=== PATIENT | male | born 1955 | race Caucasian/White ===

== ENCOUNTER → 2019-12-08 | Outpatient (CLI) | payer MEDICAID ==
--- NOTE | 2019-12-08 08:39 | US ---
EXAMINATION TYPE: US abdomen complete DATE OF EXAM: 12/08/2019 COMPARISON: NONE CLINICAL HISTORY: R10.31 RLQ abd pain, LUQ Abd pain R10.32. Patient stated has bilateral pelvic pain; prior CABG EXAM MEASUREMENTS: Liver Length: 15.7 cm Gallbladder Wall: 0.2 cm CBD: 0.5 cm Spleen: 9.6 cm Right Kidney: 10.9 x 5.7 x 4.6 cm Left Kidney: 10.6 x 6.1 x 5.9 cm Pancreas: wnl Liver: wnl Gallbladder: wnl Evidence for sonographic Correa's sign: wnl CBD: wnl Spleen: wnl Right Kidney: No hydronephrosis or masses seen Left Kidney: No hydronephrosis or masses seen Upper IVC: wnl Abd Aorta: ectatic appearance to upper and mid aorta with mild intimal wall thickening noted, but si ze is wnl. Bilateral pelvis US area of pain: no masses seen. The liver is homogenous. The intrahepatic portion of the IVC is wnl. There is no evidence of choleli thiasis. Common bile duct is unremarkable. The visualized portions of the pancreas are homogenous. The spleen is unremarkable. Kidneys are symmetric and free of hydronephrosis. No renal lesions are seen. IMPRESSION: 1. Imaging in the left lower quadrant and right lower quadrant demonstrates bowel gas only sonographi júnior. 2. Ectatic appearance of the upper and mid thoracic aorta with atherosclerosis. No aneurysm seen.
== END ==
LOC: RADUSWWP 07:40
PROVIDERS: ATTEND Family Medicine
DX: I70.0 Atherosclerosis of aorta (principal); R14.3 Flatulence
CPT/HCPCS: 76700

== ENCOUNTER → 2020-01-07 | Outpatient (CLI) | payer MEDICAID ==
--- NOTE | 2020-01-07 15:30 | XR ---
EXAMINATION TYPE: XR lumbosacral spine min 4V DATE OF EXAM: 01/07/2020 CLINICAL HISTORY: Low back pain TECHNIQUE: Frontal, lateral, and oblique images of the lumbar spine are obtained. COMPARISON: None FINDINGS: There are 5 lumbar type vertebral bodies identified. The lumbar spine shows satisfactory vertebral body heights. There is minimal retrolisthesis of L5 on S1 and L3 on L4 as well as L2 on L3 and L1 on L2. Intervertebral disc space narrowing is seen at L3-L4, L4-5 and L5-S1. Small anterior os sified are seen throughout the lumbar spine. Multilevel facet arthropathy is seen. Oblique images dem onstrate neural foraminal narrowing on the right at L2-L3, L3-L4, and L5-S1. On the left neural clarice inal narrowing is seen at L4-L5 and L5-S1. Moderate atherosclerosis of the abdominal aorta. The obliq ue images appear within normal limits. Corticated angulated coccygeal fracture is seen from prior inj ury. The overlying soft tissue appears unremarkable. Linear metallic densities overlie the T12-L1 jem tebral bodies, possibly expanded inferior vena cava filter. IMPRESSION: 1. No acute fracture is seen in the lumbar spine. 2. Moderate degenerative disc disease of the lumbar spine with multilevel malalignment likely on a de generative basis. 3. Old healed angulated coccygeal fracture. 4. Linear densities overlying the thoracolumbar junction, possible expanded inferior vena cava filter . Correlate with surgical history.
== END | disposition home or self-care (01) ==
LOC: RADXRMAIN 14:41
PROVIDERS: ATTEND Family Medicine
DX: M51.36 Other intervertebral disc degeneration, lumbar region (principal)
CPT/HCPCS: 72110

== ENCOUNTER → 2020-09-08 | Outpatient (CLI) | payer MEDICAID ==
--- NOTE | 2020-09-08 15:07 | US ---
EXAMINATION TYPE: US venous doppler duplex LE BI DATE OF EXAM: 09/08/2020 2:02 PM COMPARISON: NONE CLINICAL HISTORY: 65-year-old male M79.661,M79.662 PAIN IN LT AND RT LOWER LIMB. SIDE PERFORMED: Bilateral TECHNIQUE: The lower extremity deep venous system is examined utilizing real time linear array sonog olegario with graded compression, doppler sonography and color-flow sonography.. FINDINGS: VESSELS IMAGED: Common Femoral Vein Deep Femoral Vein Greater Saphenous Vein * Femoral Vein Popliteal Vein Small Saphenous Vein * Proximal Calf Veins (* superficial vessels) Right Leg: Negative for DVT Left Leg: Negative for DVT IMPRESSION: No evidence for DVT within the bilateral lower extremities imaged from the groin to the upper calves.
--- NOTE | 2020-09-13 11:46 | P.ARTDOP ---
Arterial Doppler LOWER EXTREMITY ARTERIAL DOPPLER: DATE OF SERVICE: 09/08/2020 Reason for study: Calf pain. Doppler waveforms: Multiphasic bilaterally throughout except the left great toe which has a poor waveform.. Pulse volume recording: []. Pressure gradients: Only at the left great toe. Ankle-brachial indices: Greater than 1 bilaterally. Toe brachial indices: 0.67 on the right, poor waveform on the left Impression: Normal study except the left great toe. Suspect the left great toe poor waveform is related to severe vasospastic phenomenon. Localized distal disease less likely. Clinical correlation recommended.
== END | disposition home or self-care (01) ==
LOC: RADUSWWP 13:27
PROVIDERS: ATTEND Family Medicine
DX: M79.661 Pain in right lower leg (principal); M79.662 Pain in left lower leg; R20.2 Paresthesia of skin
CPT/HCPCS: 93922; 93970

== ENCOUNTER → 2020-10-03 | Outpatient (CLI) | payer MEDICAID ==
--- NOTE | 2020-10-03 09:13 | CT ---
EXAMINATION TYPE: CT abdomen wo/w con DATE OF EXAM: 10/03/2020 COMPARISON: Ultrasound abdomen complete December 08, 2019 HISTORY: LLQ, Diverticulosis CT DLP: 942 mGycm, Automated Exposure Control for Dose Reduction was Utilized. CONTRAST: CT scan of the abdomen is performed with oral and without and with IV Contrast, patient injected with 100 ml mL of Isovue 300. FINDINGS: LUNG BASES: No significant abnormality is appreciated. LIVER/GB: No significant abnormality is appreciated. PANCREAS: Slight bulkiness of the pancreas without surrounding inflammatory change or ductal dilatati on. Suspect normal variant. SPLEEN: No significant abnormality is seen. ADRENALS: No significant abnormality is seen. KIDNEYS: No renal stones on noncontrast CT. Postcontrast images show symmetric cortical medullary up take and excretion without concerning renal mass or hydronephrosis seen bilaterally. BOWEL: Oral contrast does not reach ileal loops in the right abdomen making evaluation of bowel sligh tly suboptimal. No suspicious small or large bowel dilatation. LYMPH NODES: No greater than 1cm abdominal lymph nodes are appreciated. OSSEOUS STRUCTURES: Slight scoliotic curvature on coronal images. Straightening of spine on sagittal images with multilevel spondylolisthesis throughout the lumbar spine and moderate disc space narrowin g L3-L4 through L5-S1 levels. OTHER: Mild to moderate calcified plaque of the aorta extends into branch vessels. IMPRESSION: No significant acute finding is seen to account for patient's clinical symptoms.
== END | disposition home or self-care (01) ==
LOC: RADCTMAIN 07:23
PROVIDERS: ATTEND Family Medicine
DX: K57.90 Diverticulosis of intestine, part unspecified, without perforation or abscess without bleeding (principal)
CPT/HCPCS: 74170; Q9967

== ENCOUNTER → 2020-10-16 | Outpatient (CLI) | payer MEDICAID | END | disposition home or self-care (01) | LOC: LABPAT 16:10 | PROVIDERS: ATTEND Surgery | DX: Z20.828 Contact with and (suspected) exposure to other viral communicable diseases (principal) | CPT/HCPCS: U0003; C9803 ==

== ENCOUNTER 2020-10-23 10:12 | Day surgery (SDC) | payer MEDICAID ==
[2020-10-17 13:14] VITALS: BMI 23.0
[~2020-10-23 10:12] MED LIST: DEXAMETHASONE SOD PHOSPHATE 4 MG/ML 1 ML VIAL IV ONE; HYDROmorphone 0.5 MG/0.5 ML SYRINGE IVP PRN; LACTATED RINGERS 1,000 ML IV SCH; MIDAZOLAM 2 MG/2 ML VIAL IV PRN; ONDANSETRON 4 MG/2 ML VIAL IVP ONE; Pre Op ABX Message 1 EACH MISC MISCELLANE ONE; SCOPOLAMINE 1.5MG/72HR PATCH TRANSDERM ONE
[2020-10-23 10:37] VITALS: RESP 16
[2020-10-23] MEDS ORDERED: LIDOCAINE 1% (10MG/ML) FOR IV START INTRADERMA ONE (10:50)
[2020-10-23] MEDS ORDERED: MIDAZOLAM 2 MG/2 ML VIAL ONE (11:41)
[2020-10-23] MEDS ORDERED: fentaNYL (PF) 50 MCG/ML 2 ML AMP ONE (11:41)
[2020-10-23] MEDS ORDERED: LIDOCAINE 1% INJ 10MG/ML (20 ML MDV) ONE (11:41)
[2020-10-23] MEDS ORDERED: PROPOFOL 10 MG/ML 20 ML VIAL IV ONE (11:41)
[2020-10-23] MEDS ORDERED: BUPIVACAINE (PF) 0.25% 30 ML VIAL SQ ONE ×2 (12:01)
[2020-10-23] MEDS ORDERED: LIDOCAINE 1%/EPI 1:200,000 MPF 10 ML VIAL SQ ONE ×2 (12:01)
[2020-10-23] MEDS ORDERED: LACTATED RINGERS 1,000 ML IV ONE (12:08)
--- NOTE | 2020-10-23 12:47 | P.OP ---
Date of Procedure: 10/23/20 Preoperative Diagnosis: Hemorrhoids, rectal bleeding Postoperative Diagnosis: Internal and external hemorrhoids with rectal bleeding Procedure(s) Performed: Rectal exam under anesthesia, stapled hemorrhoidopexy, hemorrhoidectomy Anesthesia: RUDDY Surgeon: Leah Lobo Estimated Blood Loss (ml): 5 Pathology: other Condition: stable Disposition: PACU Indications for Procedure: The patient presented with symptomatic hemorrhoids and bleeding Operative Findings: The patient's taken to the operative suite where he is prepped and draped in the usual sterile manner under general anesthetic. Digital rectal exam is carried out. Anoscope is inserted and all areas are examined. He is noted to have internal and external hemorrhoids along with rectal mucosal prolapse. An obturator was anal dilator is then placed into the anus. It suggested so the dentate line is in the mid clear portion. A pursestring suture of 2-0 Prolene is then placed about 4-5 cm proximal to the dentate line. The stapler is inserted so the anvil was proximal to the pursestring and the pursestring suture is tied down. The stapler is then closed until we indicators in the mid green portion. It's held for 1 minute, fired and held for an additional minute. It's then derotated and removed. There is a good amount of rectal mucosa and submucosa removed. This gives good reduction of the mucosal prolapse. He has a larger hemorrhoid with skin tag in the right posterior lateral position. This is removed with harmonic scissors. Defect is then reapproximated using simple inverted deep dermal sutures of 3-0 Vicryl. The defect is then closed with 3-0 chromic. There is reexamined. There is small internal hemorrhoids noted anteriorly that appear unremarkable. Perianal block is carried out. He's taken to recovery room in satisfactory condition. According to or personnel, all counts were correct. Plan - Discharge Summary Discharge Rx Participant: No New Discharge Prescriptions: New HYDROcodone/APAP 7.5-325MG [[place] 7.5-325] 1 tab PO Q4H PRN 14 Days #30 tab PRN Reason: Pain Dibucaine [Nupercainal] 56.7 gm RECTAL Q6HR #1 oint...g. Docusate [Colace] 100 mg PO DAILY #30 capsule No Action Metoprolol Succinate [Toprol XL] 25 mg PO DAILY Rosuvastatin [Crestor] 20 mg PO HS Multivit-Min/Folic/Vit K/Lycop [Men's Multivitamin Tablet] 1 each PO DAILY Aspirin [Adult Low Dose Aspirin EC] 81 mg PO DAILY Discharge Medication List Aspirin [Adult Low Dose Aspirin EC] 81 mg PO DAILY 10/17/20 [History] Metoprolol Succinate [Toprol XL] 25 mg PO DAILY 10/17/20 [History] Multivit-Min/Folic/Vit K/Lycop [Men's Multivitamin Tablet] 1 each PO DAILY 10/17/20 [History] Rosuvastatin [Crestor] 20 mg PO HS 10/17/20 [History] Dibucaine [Nupercainal] 56.7 gm RECTAL Q6HR #1 oint...g. 10/23/20 [Rx] Docusate [Colace] 100 mg PO DAILY #30 capsule 10/23/20 [Rx] HYDROcodone/APAP 7.5-325MG [[place] 7.5-325] 1 tab PO Q4H PRN 14 Days #30 tab 10/23/20 [Rx] Follow up Appointment(s)/Referral(s): Leah Lobo DO [Doctor of Osteopathic Medicine] - 2 Weeks Activity/Diet/Wound Care/Special Instructions: High fiber diet, add fiber tablets or fiber gummies 2-3 times a day. Sit in a tub of warm water to 3 times a day, especially after bowel movement. Use wet wipes after bowel movement. Pat dry. Use the numbing ointment 3-4 times a day, especially after bowel movement. Expect some bleeding. Call if questions or concerns Discharge Disposition: HOME SELF-CARE
[2020-10-23 12:51] VITALS: TEMP 97.1
[2020-10-23] MEDS: HYDROmorphone 1 MG/ML 1 ML SYRINGE IVP ONE ×2 (13:13→13:18)
[2020-10-23] MEDS ORDERED: HYDROcodone/APAP 7.5-325MG 1 EACH TAB PO ONE ×2 (13:45→13:48)
[2020-10-23] MEDS ORDERED: HYDROcodone/APAP 7.5-325MG 1 EACH TAB ONE (13:48)
[2020-10-23 14:04] VITALS: BP 159/87; PULSE 56
--- NOTE | 2020-10-25 15:20 | CDI ---
Outpatient Documentation Clarification Form Date: 10/25/20 CDS/Plant General Manager Name: Arlin Rodríguez Phone: If any questions, call Jeimy Hoang Data Warehousing Manager at [phone] Patient Name: Froylan Umanzor Admit Date: 10/23/20 Discharge Date: 10/23/20 ATTENTION: The [facility] Coding Staff appreciate your assistance in clarifying documentation. Please respond to the clarification below the line at the bottom and electronically sign. The [facility] Coding staff will review the response and follow-up if needed. Please note: Queries are made part of the Legal Health Record. If you have any questions, please contact the Data Warehousing Manager. Dear Dr. Lobo, Please provide clarification as to which type of hemorrhoids the procedure(s) were performed on. On the operative report under Post-operative Diagnosis it is documented both internal and external hemorrhoids with rectal bleeding. In the body of the report only procedures describe locations of internal hemorrhoids. Please clarify. Thank you for your kind consideration. Internal with prolapse and external MTDD
== END 2020-10-23 14:26 | disposition home or self-care (01) ==
LOC: OR 10:12
PROVIDERS: ATTEND Surgery
DX: K64.8 Other hemorrhoids (principal); K64.4 Residual hemorrhoidal skin tags; K62.5 Hemorrhage of anus and rectum; Z86.79 Personal history of other diseases of the circulatory system; Z95.1 Presence of aortocoronary bypass graft; I10 Essential (primary) hypertension; E78.5 Hyperlipidemia, unspecified; Z87.891 Personal history of nicotine dependence; Z79.82 Long term (current) use of aspirin; Z79.899 Other long term (current) drug therapy; Z98.890 Other specified postprocedural states; Z88.0 Allergy status to penicillin
CPT/HCPCS: 46260; 88304; J2250; J1100; J2405; J2001; J3010; J1170; J2704

== ENCOUNTER 2021-04-05 06:13 | Emergency (ER) | payer MEDICAID ==
[2021-04-05] MEDS ORDERED: ASPIRIN 81 MG PO STA (06:21)
[2021-04-05] MEDS ORDERED: ONDANSETRON 4 MG/2 ML VIAL IVP STA (06:39)
[2021-04-05] MEDS ORDERED: MORPHINE SULFATE 4 MG/ML SYRINGE IVP STA (06:39)
[2021-04-05 06:41] LABS: Basophils % (A) 1 %; Eosinophils # (A) 0.2 k/uL (0-0.7); Eosinophils % (A) 4 %; HCT 42.9 % (39.0-53.0); HGB 14.7 gm/dL (13.0-17.5); Lymphocytes # (A) 1.7 k/uL (1.0-4.8); Lymphocytes % (A) 27 %; MCH 32.7 pg (25.0-35.0); MCHC 34.4 g/dL (31.0-37.0); MCV 95.1 fL (80.0-100.0); Mean Platelet Volume 7.6; Monocytes # (A) 0.4 k/uL (0-1.0); Monocytes % (A) 7 %; Neutrophils # (A) 3.8 k/uL (1.3-7.7); Neutrophils % (A) 61 %; Platelet Count 201 k/uL (150-450); RBC 4.51 m/uL (4.30-5.90); RDW 12.5 % (11.5-15.5); WBC 6.3 k/uL (3.8-10.6)
[2021-04-05 06:56] LABS: Albumin 4.5 g/dL (3.5-5.0); Calcium 9.2 mg/dL (8.4-10.2); INR 0.9 (<1.2); Partial Thromboplastin Time 24.5 sec (22.0-30.0); Potassium 4.4 mmol/L (3.5-5.1); Prothrombin Time 10.1 sec (9.0-12.0); Total Bilirubin 1.2 mg/dL (0.2-1.3); Total Protein 6.7 g/dL (6.3-8.2)
--- NOTE | 2021-04-05 07:01 | ED ---
Chest Pain HPI - General Chief Complaint: Chest Pain Stated Complaint: Chest Pain Time Seen by Provider: 04/05/21 06:20 Source: patient, RN notes reviewed Mode of arrival: ambulatory Limitations: no limitations - History of Present Illness Initial Comments: 65-year-old male presents emergency Department with multiple complaints. Patient states she's been having ongoing over one year worth of low back, abdominal discomfort. Patient states her rates down his legs states that there is always after working long hours. He stands all day. Patient states he saw his primary when this all started over a year ago states that he had x-rays CT and 2 ultrasounds which were negative and he states he just stopped following up. He denies any bowel bladder incontinence or retention. No saddle anesthesias. Patient states last couple days she's having similar pain in his shoulders. Patient is no chest pain or shortness breath no headache or dizziness. Patient states that he just feels very achy - Related Data Home Medications Medication Instructions Recorded Confirmed Aspirin [Adult Low Dose Aspirin EC] 81 mg PO DAILY 10/17/20 10/17/20 Metoprolol Succinate [Toprol XL] 25 mg PO DAILY 10/17/20 10/17/20 Multivit-Min/Folic/Vit K/Lycop 1 each PO DAILY 10/17/20 10/17/20 [Men's Multivitamin Tablet] Rosuvastatin [Crestor] 20 mg PO HS 10/17/20 10/17/20 Previous Rx's Medication Instructions Recorded Dibucaine [Nupercainal] 56.7 gm RECTAL Q6HR #1 oint...g. 10/23/20 Docusate [Colace] 100 mg PO DAILY #30 capsule 10/23/20 HYDROcodone/APAP 7.5-325MG [[place] 1 tab PO Q4H PRN 14 Days #30 tab 10/23/20 7.5-325] Cyclobenzaprine [Flexeril] 10 mg PO TID PRN #15 tab 04/05/21 predniSONE 50 mg PO DAILY #5 tab 04/05/21 Allergies Allergy/AdvReac Type Severity Reaction Status Date / Time Penicillins Allergy Rash/Hives Verified 04/05/21 06:19 Review of Systems ROS Statement: Those systems with pertinent positive or pertinent negative responses have been documented in the HPI. ROS Other: All systems not noted in ROS Statement are negative. Past Medical History Past Medical History: Hyperlipidemia, Hypertension History of Any Multi-Drug Resistant Organisms: None Reported Past Surgical History: Coronary Bypass/CABG Additional Past Surgical History / Comment(s): COLONOSCOPY Past Anesthesia/Blood Transfusion Reactions: Previous Problems w/ Anesthesia Additional Past Anesthesia/Blood Transfusion Reaction / Comment(s): WAS SLOW TO COME OUT OF ANESTHESIA AFTER CABG Past Psychological History: No Psychological Hx Reported Smoking Status: Former smoker Past Alcohol Use History: Occasional Past Drug Use History: None Reported - Past Family History Mother Family Medical History: No Reported History General Exam Limitations: no limitations General appearance: alert, in no apparent distress Head exam: Present: atraumatic, normocephalic, normal inspection Eye exam: Present: normal appearance, PERRL, EOMI. Absent: scleral icterus, conjunctival injection, periorbital swelling ENT exam: Present: normal exam, normal oropharynx, mucous membranes moist Neck exam: Present: normal inspection, full ROM. Absent: tenderness, meningismus, lymphadenopathy Respiratory exam: Present: normal lung sounds bilaterally. Absent: respiratory distress, wheezes, rales, rhonchi, stridor Cardiovascular Exam: Present: regular rate, normal rhythm, normal heart sounds. Absent: systolic murmur, diastolic murmur, rubs, gallop, clicks GI/Abdominal exam: Present: soft, normal bowel sounds. Absent: distended, tenderness, guarding, rebound, rigid Extremities exam: Present: normal inspection, full ROM, normal capillary refill. Absent: tenderness, pedal edema, joint swelling, calf tenderness Back exam: Present: full ROM, tenderness (Over the SI joints), paraspinal tenderness, vertebral tenderness Neurological exam: Present: alert, oriented X3 Skin exam: Present: warm, dry, intact, normal color. Absent: rash Course Vital Signs 04/05/21 04/05/21 04/05/21 06:16 06:51 07:24 Temperature 97.9 F 98.0 F Pulse Rate 63 85 53 L Respiratory 20 16 20 Rate Blood Pressure 140/90 140/82 137/83 O2 Sat by Pulse 99 97 97 Oximetry Chest Pain MDM - MDM Workup Is negative at this Time and exercises degenerative changes. Patient has no complaints chest pain or shortness of breath. Patient has joint pain which he's developed after work. Patient does have history of bulging disc in which he is to have injections in his lumbar spine. Patient will follow-up with orthopedics will follow-up with primary care physician for probable MRI patient and agree to plan return parameters discussed. Disposition Clinical Impression: Lumbar degenerative disc disease, Lumbar radiculopathy, Arthralgia, Myalgia Disposition: HOME SELF-CARE Condition: Stable Instructions (If sedation given, give patient instructions): Lumbar Radiculopathy (ED), Musculoskeletal Pain (ED) Additional Instructions: Please return to the Emergency Department if symptoms worsen or any other concerns. Prescriptions: Cyclobenzaprine [Flexeril] 10 mg PO TID PRN #15 tab PRN Reason: Muscle Spasm predniSONE 50 mg PO DAILY #5 tab Is patient prescribed a controlled substance at d/c from ED?: No Referrals: Johanny Watson MD [Primary Care Provider] - 1-2 days Lars Myers DO [Doctor of Osteopathic Medicine] - 1-2 days Time of Disposition: 08:03
[2021-04-05 07:25] VITALS: TEMP 98
--- NOTE | 2021-04-05 07:29 | XR ---
EXAM: XR Chest, 2 Views CLINICAL HISTORY: ITS.REASON XR Reason: Chest Pain TECHNIQUE: Frontal and lateral views of the chest. COMPARISON: No relevant prior studies available. FINDINGS: Lungs: Unremarkable. No consolidation. The pulmonary vasculature demonstrates no significant radiographic abnormality. Pleural space: Unremarkable. No pneumothorax. No large pleural effusion. Heart: Unremarkable. No cardiomegaly. Mediastinum: Unremarkable. No significant abnormality identified. The trachea is midline. Orphaned pacer leads suggested in the anterior mediastinum on the lateral projection. Bones/joints: Intact sternotomy wires. Mild dextroscoliosis, estimated at 15 between the superior endplate at L4 and T10. IMPRESSION: No acute cardiopulmonary process identified. Incidental mild scoliosis. Intact sternotomy wires with orphaned pacer leads.
--- NOTE | 2021-04-05 07:32 | XR ---
EXAMINATION TYPE: XR lumbosacral spine min 4V DATE OF EXAM: 04/05/2021 COMPARISON: 01/07/2020 HISTORY: Pain TECHNIQUE: 5 view lumbar spine FINDINGS: There are 5 lumbar-type vertebral bodies. Pedicles are intact. Facet degenerative changes a re present L4-5 L5-S1 on the left. Spondylosis is present. Degenerative disc changes are present L3-4 through L5-S1. Vertebral body heights are preserved. Note is made of vascular calcification within t he aorta. COMPARISON: No significant interval change is evident. IMPRESSION: 1. Degenerative changes lower lumbar spine disc and facets discussed above 2. No acute osseous abnormality.
[2021-04-05] MEDS ORDERED: methylPREDNISolone SOD SUCCI 125 MG/2 ML VIAL IV STA (08:00)
[2021-04-05] MEDS ORDERED: CYCLOBENZAPRINE 10 MG TAB PO STA (08:00)
[2021-04-05] MEDS ORDERED: ACET/COD 300 MG/30 MG STARTER PACK 6 TAB BTL PO STA (08:03)
[2021-04-05 08:29] VITALS: BP 131/91; PULSE 52; RESP 18
== END 2021-04-05 08:28 | disposition home or self-care (01) ==
LOC: SUPCPDRO 06:13 → EC 06:13
DX: M51.16 Intervertebral disc disorders with radiculopathy, lumbar region (principal); M25.519 Pain in unspecified shoulder; M79.10 Myalgia, unspecified site; I10 Essential (primary) hypertension; E78.5 Hyperlipidemia, unspecified; Z87.891 Personal history of nicotine dependence; Z79.52 Long term (current) use of systemic steroids; Z79.82 Long term (current) use of aspirin; Z88.0 Allergy status to penicillin; Z95.1 Presence of aortocoronary bypass graft
CPT/HCPCS: 36415; 93005; 80053; 83690; 83735; 84484; 85025; 85610; 85730; 72110; 71046; 99285; 96374; 96375 ×2; J2270; J2930; J2405

== ENCOUNTER → 2021-11-30 | Outpatient (CLI) | payer MEDICAID ==
--- NOTE | 2021-11-30 15:59 | MR ---
EXAMINATION TYPE: MR lumbar spine wo con DATE OF EXAM: 11/30/2021 COMPARISON: Outside lumbar November 15, 2021 spine x-ray HISTORY: Low back pain that radiates down both legs for several years TECHNIQUE: Multiplanar, multisequence imaging of the lumbar spine is performed without IV contrast. FINDINGS: There is dextroconvex scoliosis centered lower lumbar spine redemonstrated. Sagittal images of the lumbar spine show vertebral body heights to remain satisfactory. Alignment is straightened on sagittal images. There is grade 1 retrolisthesis L5 on S1 redemonstrated. Multilevel disc desiccatio n with moderate disc space narrowing L3-L4 level. Moderate to advanced disc space narrowing with mode rate anterior spurring and heterogeneous Modic type I and type II endplate changes at L4-L5 and L5-S1 levels. The conus medullaris is normal in position and signal ending inferior L1 level. Additional m oderate multilevel anterior spurring redemonstrated. Axial images at T12-L1 level show mild broad-based disc bulge mildly effacing anterior thecal sac and mild facet degenerative changes bilaterally mildly effacing the posterolateral thecal sac. Axial images at the L1-L2 level show [id number] facet degenerative changes effacing the the rig ht posterior lateral thecal sac. There is mild/moderate broad disc bulge with right paracentral disc protrusion component effacing the anterior thecal sac. Patent bilateral neural foramina. Axial images at the L2-L3 level show mild broad disc bulge mildly effaces the anterior thecal sac and mild facet degenerative changes bilaterally. Patent bilateral neural foramina. Axial images at the L3-L4 level shows subtle spondylolisthesis with moderate broad-based posterior di sc protrusion effacing the anterior thecal sac. There is mild facet arthropathy effacing the right po sterior lateral thecal sac. There is mild right-sided anterior inferior neural foraminal narrowing. Axial images at the L4-L5 level show moderate broad disc bulge effacing anterior thecal sac. There is moderate facet arthropathy and ligament flavum hypertrophy effacing the posterior lateral thecal sac . There is moderate left-sided inferior neural foraminal narrowing. Axial images at the L5-S1 level show spondylolisthesis with moderate broad-based posterior disc protr usion. There is mild to moderate facet arthropathy bilaterally. There is moderate bilateral neural fo raminal narrowing. The paraspinal muscle bulk is preserved. IMPRESSION: Straightening of lumbar spine with multilevel degenerative changes as detailed above
== END | disposition home or self-care (01) ==
LOC: RADMRIMAIN 15:01
PROVIDERS: ATTEND Orthopaedic Surgery
DX: M51.36 Other intervertebral disc degeneration, lumbar region (principal)
CPT/HCPCS: 72148

== ENCOUNTER → 2021-12-29 | Outpatient (CLI) | payer MEDICAID ==
--- NOTE | 2021-12-29 11:00 | MR ---
EXAMINATION TYPE: MR thoracic spine wo con DATE OF EXAM: 12/29/2021 10:50 AM COMPARISON: NONE HISTORY: Mid back pain. Multiplanar MultiSpin echo imaging of the thoracic spine was performed. Disc spaces: There is degenerative disc space narrowing and posterior disc bulging at T6-7 and T9-T10 through T12-L1. No disc herniation or central stenosis appreciated. Spinal canal: No evidence for canal stenosis. No intrinsic or extrinsic lesion. Thoracic spinal cord: Thoracic spinal cord is of normal caliber and signal. Paraspinal soft tissues: No evidence for paraspinal mass. No destructive lesions seen. Vertebral segments: No evidence for fracture or bony lesion. IMPRESSION: Left degenerative disc space narrowing and posterior disc bulging with ventral spondylosi s as outlined above.
== END | disposition home or self-care (01) ==
LOC: RADMRIMAIN 10:05
PROVIDERS: ATTEND Orthopaedic Surgery
DX: M43.04 Spondylolysis, thoracic region (principal)
CPT/HCPCS: 72146

== ENCOUNTER 2022-01-17 11:00 | Day surgery (SDC) | payer MEDICAID ==
[2022-01-15 11:21] VITALS: BMI 24.9
[~2022-01-17 11:00] MED LIST changes: -DEXAMETHASONE SOD PHOSPHATE 4 MG/ML 1 ML VIAL IV ONE; -HYDROmorphone 0.5 MG/0.5 ML SYRINGE IVP PRN; +LIDOCAINE 1% (10MG/ML) FOR IV START INTRADERMA PRN; -MIDAZOLAM 2 MG/2 ML VIAL IV PRN; -ONDANSETRON 4 MG/2 ML VIAL IVP ONE; -Pre Op ABX Message 1 EACH MISC MISCELLANE ONE; -SCOPOLAMINE 1.5MG/72HR PATCH TRANSDERM ONE
[2022-01-17 11:42] VITALS: TEMP 97.7
[2022-01-17] MEDS ORDERED: LIDOCAINE 1% (10MG/ML) FOR IV START INTRADERMA ONE (11:47)
[2022-01-17] MEDS ORDERED: fentaNYL (PF) 50 MCG/ML 2 ML AMP ONE (11:55)
[2022-01-17] MEDS ORDERED: IOPAMIDOL M200 10 ML VIAL ONE (11:55)
[2022-01-17] MEDS ORDERED: MIDAZOLAM 2 MG/2 ML VIAL ONE (11:55)
[2022-01-17] MEDS ORDERED: methylPREDNISolone ACETATE 40 MG/ML 1 ML VIAL ONE (11:55)
--- NOTE | 2022-01-17 12:07 | P.PCN ---
Date of Procedure: 01/17/22 Procedure(s) Performed: PREOPERATIVE DIAGNOSIS: 1- Lumbar Degenerative Disc Diseases 2-Lumbar spondylosis with Facet arthropathy without myelopathy. 3-lumbar foraminal stenosis POSTOPERATIVE DIAGNOSIS: Same as preop diagnosis. PROCEDURE 1. Lumbar epidural steroid injection under fluoroscopic guidance at the L5-S1 level. (Fluoroscopy imaging was available in radiology department) 2. Lumbar epidurogram. ANESTHESIA: Local with 1% lidocaine 3 ml and , moderate sedation with intravenous Versed 2 mg ,and fentanyle 100 Mcg EBL: Minimal PROCEDURE INDICATION: The patient with low back pain and radiculitis symptoms unresponsive to conservative treatment. Fluoroscopy was used to optimize visualization of the needle placement and to maximize safety. PROCEDURE DESCRIPTION / TECHNIQUE: The patient was seen and identified in the preoperative area. Risks, benefits, complications including but not limited to infections ,bleeding ,allergic reaction to the medications ,nerve damage and not complete pain releife , and alternatives were discussed with the patient. The patient agreed to proceed with the procedure and signed the consent. IV was started, and vital signs were stable. Patient was taken to the OR and time out was completed. The patient was placed in the prone position on procedure table and a pillow was placed under the abdomen to reduce lumbar lordosis. The lumbosacral area was prepped and draped in the usual sterile fashion.ere closely monitored during the procedure. Conscious sedation was used during the procedure to decrease patients anxiety. Vital signs was monitered during the entire procedure. Using anterior-posterior fluoroscopy, the L5-S1 interlaminar space was identified and the skin over this site was marked and then infiltrated with 1% lidocaine subcutaneously. Subsequently, a 20-gauge Tuohy epidural needle was inserted and advanced toward the epidural space using the ``Loss of resistance technique and guided by AP and lateral fluoroscopy. The correct needle position in the epidural space was verified with the injection of 2 mL of the water soluble contrast dye Isovue 200 contrast and observing an excellent epidurogram with the epidural spread of the dye, after negative aspiration for blood and CSF and in the absence of paresthesias. Again after negative aspiration, a 6 ml mixture containing 80 mg of Depo-medrol , and 2 ml of preservative free Normal Saline, and 2 ml of preservative free lidocaine 1% solution was injected and a washout of epidurogram was seen. Needle was withdrawn intact, skin was cleansed, and bandages were applied. COMPLICATIONS: None DISPOSITION / PLANS: The patient was placed in a supine position and transferred to the recovery area in a stable condition for observation. There was no evidence of lower extremity motor or sensory deficit after the procedure. Patient was discharged from the recovery room after meeting discharge criteria. Home discharge instructions were given to the patient by the staff. The patient was reexamined prior to discharge. The patient will schedule a follow up in the clinic in 2-4 weeks.
[2022-01-17] MEDS ORDERED: IV FLUID CONTINUATION 1,000 ML IV ONE (12:12)
[2022-01-17 12:15] VITALS: RESP 16
[2022-01-17 12:33] VITALS: BP 132/83; PULSE 60
--- NOTE | 2022-01-17 12:45 | FL ---
Fluoroscopy INDICATION: Pain FINDINGS: Fluoroscopy time: 2 seconds. Images obtained: 1. IMPRESSIONS: 1. Documentation of fluoroscopy.
== END 2022-01-17 12:49 | disposition home or self-care (01) ==
LOC: ORPAIN 11:00
PROVIDERS: ATTEND Specialist
DX: M51.16 Intervertebral disc disorders with radiculopathy, lumbar region (principal); M48.061 Spinal stenosis, lumbar region without neurogenic claudication
CPT/HCPCS: 62323; J2250; J1030; J3010; Q9966

== ENCOUNTER 2022-02-28 11:35 | Day surgery (SDC) | payer MEDICAID ==
[2022-02-27 10:37] VITALS: BMI 24.7
[2022-02-28] MEDS ORDERED: LACTATED RINGERS 1,000 ML IV ONE (11:57)
[2022-02-28 12:01] VITALS: TEMP 97.2
[2022-02-28] MEDS ORDERED: IOPAMIDOL M200 10 ML VIAL ONE (12:25)
[2022-02-28] MEDS ORDERED: TRIAMCINOLONE ACETONIDE 40 MG/ML 1 ML VIAL ONE (12:25)
[2022-02-28] MEDS ORDERED: MIDAZOLAM 2 MG/2 ML VIAL ONE (12:25)
[2022-02-28] MEDS ORDERED: fentaNYL (PF) 50 MCG/ML 2 ML AMP ONE (12:25)
--- NOTE | 2022-02-28 12:41 | P.PCN ---
Date of Procedure: 02/28/22 Description of Procedure: PREOPERATIVE DIAGNOSIS: 1- Lumbar Degenerative Disc Diseases 2-Lumbar spondylosis with Facet arthropathy without myelopathy. 3-lumbar foraminal stenosis POSTOPERATIVE DIAGNOSIS: Same as preop diagnosis. PROCEDURE 1. Lumbar epidural steroid injection under fluoroscopic guidance at the L5-S1 level. (Fluoroscopy imaging was available in radiology department) 2. Lumbar epidurogram. ANESTHESIA: Local with 1% lidocaine 3 ml and , moderate sedation with intravenous Versed 2 mg ,and fentanyl 100 Mcg EBL: Minimal PROCEDURE INDICATION: The patient with low back pain and radiculitis symptoms unresponsive to conservative treatment. Received excellent relief with first LESI >60% Fluoroscopy was used to optimize visualization of the needle placement and to maximize safety. PROCEDURE DESCRIPTION / TECHNIQUE: The patient was seen and identified in the preoperative area. Risks, benefits, complications including but not limited to infections ,bleeding ,allergic reaction to the medications ,nerve damage and not complete pain releife , and alternatives were discussed with the patient. The patient agreed to proceed with the procedure and signed the consent. IV was started, and vital signs were stable. Patient was taken to the OR and time out was completed. The patient was placed in the prone position on procedure table and a pillow was placed under the abdomen to reduce lumbar lordosis. The lumbosacral area was prepped and draped in the usual sterile fashion.ere closely monitored during the procedure. Conscious sedation was used during the procedure to decrease patients anxiety. Vital signs was monitered during the entire procedure. Using anterior-posterior fluoroscopy, the L5-S1 interlaminar space was identified and the skin over this site was marked and then infiltrated with 1% lidocaine subcutaneously. Subsequently, a 18-gauge Tuohy epidural needle was inserted and advanced toward the epidural space using the ``Loss of resistance technique and guided by AP and lateral fluoroscopy. The correct needle position in the epidural space was verified with the injection of 2 mL of the water soluble contrast dye Isovue 200 contrast and observing an excellent epidurogram with the epidural spread of the dye, after negative aspiration for blood and CSF and in the absence of paresthesias. Again after negative aspiration, a 5 ml mixture containing 40 mg of Depo-medrol , and 4 ml of preservative free Normal Saline solution was injected and a washout of epidurogram was seen. Needle was withdrawn intact, skin was cleansed, and bandages were applied. COMPLICATIONS: None DISPOSITION / PLANS: The patient was placed in a supine position and transferred to the recovery area in a stable condition for observation. There was no evidence of lower extremity motor or sensory deficit after the procedure. Patient was discharged from the recovery room after meeting discharge criteria. Home discharge instructions were given to the patient by the staff. The patient was reexamined prior to discharge. Repeat 3rd injection 2-4 weeks.
[2022-02-28] MEDS ORDERED: IV FLUID CONTINUATION 1,000 ML IV ONE (12:43)
--- NOTE | 2022-02-28 12:50 | FL ---
EXAMINATION TYPE: FL guided pain mgmt statistic DATE OF EXAM: 02/28/2022 CLINICAL HISTORY: Low back pain. TECHNIQUE: Fluoroscopy. COMPARISON: None. FINDINGS: Fluoroscopic guidance was provided during pain relief procedure performed by Dr. Garay . A total of 2 seconds of fluoroscopic time was utilized during the procedure and two spot images are acquired. Images acquired shows needle localization at level of lumbosacral junction. IMPRESSION: As Above.
[2022-02-28 13:16] VITALS: BP 146/77; PULSE 78; RESP 16
== END 2022-02-28 13:30 | disposition home or self-care (01) ==
LOC: ORPAIN 11:35
PROVIDERS: ATTEND Anesthesiology
DX: M47.816 Spondylosis without myelopathy or radiculopathy, lumbar region (principal); M48.061 Spinal stenosis, lumbar region without neurogenic claudication; M51.36 Other intervertebral disc degeneration, lumbar region
CPT/HCPCS: 62323; J2250; J3301; J3010; Q9966

== ENCOUNTER 2022-04-04 08:48 | Day surgery (SDC) | payer MEDICAID ==
[2022-04-03 10:13] VITALS: BMI 24.5
[2022-04-04 09:44] VITALS: RESP 18; TEMP 97.8
[2022-04-04] MEDS ORDERED: MIDAZOLAM 2 MG/2 ML VIAL ONE (10:16)
[2022-04-04] MEDS ORDERED: methylPREDNISolone ACETATE 80 MG/ML 1 ML VIAL ONE (10:16)
[2022-04-04] MEDS ORDERED: IOPAMIDOL M200 10 ML VIAL ONE (10:16)
[2022-04-04] MEDS ORDERED: fentaNYL (PF) 50 MCG/ML 2 ML AMP ONE (10:16)
--- NOTE | 2022-04-04 10:27 | P.PCN ---
Date of Procedure: 04/04/22 Procedure(s) Performed: PREOPERATIVE DIAGNOSIS: 1- Lumbar Degenerative Disc Diseases 2-Lumbar spondylosis with Facet arthropathy without myelopathy. 3-lumbar foraminal stenosis POSTOPERATIVE DIAGNOSIS: Same as preop diagnosis. PROCEDURE 1. Lumbar epidural steroid injection under fluoroscopic guidance at the L5-S1 level. (Fluoroscopy imaging was available in radiology department) 2. Lumbar epidurogram. ANESTHESIA: Local with 1% lidocaine 3 ml and , moderate sedation with intr avenous Versed 2 mg ,and fentanyle 50 Mcg EBL: Minimal PROCEDURE INDICATION: The patient with low back pain and radiculitis symptoms unresponsive to conservative treatment. Fluoroscopy was used to optimize visualization of the needle placement and to maximize safety. PROCEDURE DESCRIPTION / TECHNIQUE: The patient was seen and identified in the preoperative area. Risks, benefits, complications including but not limited to infections ,bleeding ,allergic reaction to the medications ,nerve damage and not complete pain releife , and alternatives were discussed with the patient. The patient agreed to proceed with the procedure and signed the consent. IV was started, and vital signs were stable. Patient was taken to the OR and time out was completed. The patient was placed in the prone position on procedure table and a pillow was placed under the abdomen to reduce lumbar lordosis. The lumbosacral area was prepped and draped in the usual sterile fashion.ere closely monitored during the procedure. Conscious sedation was used during the procedure to decrease patients anxiety. Vital signs was monitered during the entire procedure. Using anterior-posterior fluoroscopy, the L5-S1 interlaminar space was identified and the skin over this site was marked and then infiltrated with 1% lidocaine subcutaneously. Subsequently, a 20-gauge Tuohy epidural needle was inserted and advanced toward the epidural space using the ``Loss of resistance technique and guided by AP and lateral fluoroscopy. The correct needle position in the epidural space was verified with the injection of 2 mL of the water soluble contrast dye Isovue 200 contrast and observing an excellent epidurogram with the epidural spread of the dye, after negative aspiration for blood and CSF and in the absence of paresthesias. Again after negative aspiration, a 6 ml mixture containing 80 mg of Depo-medrol , and 2 ml of preservative free Normal Saline, and 2 ml of preservative free lidocaine 1% solution was injected and a washout of epidurogram was seen. Needle was withdrawn intact, skin was cleansed, and bandages were applied. COMPLICATIONS: None DISPOSITION / PLANS: The patient was placed in a supine position and transferred to the recovery area in a stable condition for observation. There was no evidence of lower extremity motor or sensory deficit after the procedure. Patient was discharged from the recovery room after meeting discharge criteria. Home discharge instructions were given to the patient by the staff. The patient was reexamined prior to discharge. The patient will schedule a follow up in the clinic in 2-4 weeks.
[2022-04-04 10:54] VITALS: BP 133/84; PULSE 62
[2022-04-04] MEDS ORDERED: IV FLUID CONTINUATION 1,000 ML IV ONE (10:54)
--- NOTE | 2022-04-04 11:03 | FL ---
Fluoroscopy INDICATION: Pain FINDINGS: Fluoroscopy time: 1 seconds. Images obtained: 1. IMPRESSIONS: 1. Documentation of fluoroscopy.
== END 2022-04-04 11:15 | disposition home or self-care (01) ==
LOC: ORPAIN 08:48
PROVIDERS: ATTEND Specialist
DX: M51.16 Intervertebral disc disorders with radiculopathy, lumbar region (principal); M47.26 Other spondylosis with radiculopathy, lumbar region; M48.061 Spinal stenosis, lumbar region without neurogenic claudication; Z88.0 Allergy status to penicillin
CPT/HCPCS: 62323; J2250; J1040; J3010; Q9966

== ENCOUNTER → 2022-05-28 | Outpatient (CLI) | payer MEDICAID ==
--- NOTE | 2022-05-28 20:09 | CT ---
EXAMINATION TYPE: CT abdomen pelvis w con CT DLP: 600.20 mGycm, Automated exposure control for dose reduction was used. DATE OF EXAM: 05/28/2022 7:30 PM COMPARISON: CT abdomen pelvis most recent from 10/03/2020 CLINICAL INDICATION:Male, 66 years old with history of R10.31 R10.32 LEFT AND RIGHT QUAD PAIN; lower abdominal pain TECHNIQUE: Axial CT of the abdomen and pelvis. Sagittal and coronal reformats were created on a [employer] workstation. Contrast used:100 mL of Isovue 300 with IV Contrast, Oral contrast used: with Oral Contrast FINDINGS: LOWER CHEST: Unremarkable ABDOMEN LIVER: Unremarkable GALLBLADDER AND BILE DUCTS: Unremarkable. PANCREAS: Unremarkable. SPLEEN: Unremarkable. ADRENAL GLANDS: Unremarkable. KIDNEYS AND URETERS: No evidence of hydronephrosis or renal calculus. The ureters are unremarkable. PELVIS BLADDER: Urinary bladder is distended. REPRODUCTIVE: Unremarkable. ABDOMEN & PELVIS STOMACH AND BOWEL: There is nondistended sigmoid colon with postsurgical changes at the rectum. The s igmoid is relatively nondistended with scattered diverticula. No evidence of bowel obstruction. PERITONEUM: No evidence of pneumoperitoneum or free fluid. VASCULATURE: Mild atherosclerotic calcifications are present throughout the abdominal aorta and its b ranches. No evidence of aortic aneurysm. MUSCULOSKELETAL: No acute osseous abnormalities. Mild disc degeneration changes are present throughou t the thoracolumbar spine. Disc degeneration changes worse at L5-S1 with at least moderate bilateral neural foraminal stenosis. LYMPH NODES: No gross evidence for lymphadenopathy. SOFT TISSUE/ABDOMINAL WALL: Unremarkable IMPRESSION: Postsurgical changes of the rectum with decompressed sigmoid colon containing multiple diverticula. C orrelate for mild uncomplicated colitis/diverticulitis. No additional acute findings within the abdom en and pelvis to explain the patient's pain.
== END | disposition home or self-care (01) ==
LOC: RADCTMAIN 17:12
PROVIDERS: ATTEND Family Medicine
DX: R10.31 Right lower quadrant pain (principal); R10.32 Left lower quadrant pain; R19.4 Change in bowel habit
CPT/HCPCS: 74177; Q9967